=== PATIENT | male | born 1985 | race African-American/Black ===

== ENCOUNTER 2016-05-08 07:21 | Emergency (ER) | payer SELFPAY ==
[2016-05-08] MEDS ORDERED: Ketorolac Tromethamine 30 MG/ML VIAL ONE (08:00)
[2016-05-08] MEDS ORDERED: Ondansetron HCl/PF 4 MG/2 ML Vial ONE (08:00)
[2016-05-08] MEDS ORDERED: Sodium Chloride 0.9% 1,000 ML ONE (08:00)
[2016-05-08 08:03] LABS: #Basophils 0.1 thou/uL (0.0-0.2); #Eosinphils 0.2 thou/uL (0.0-0.7); #Lymphocytes 1.8 thou/uL (1.20-3.40); #Monocytes 0.4 thou/uL (0.11-0.59); #Neutrophils 2.3 thou/uL (1.40-6.50); %Basophils 2.1 % (0.0-1.0); %Eosinophils 3.4 % (0.0-10.0); %Lymphocytes 37.5 % (21.0-51.0); %Monocytes 8.6 % (0.0-10.0); Bilirubin Negative (Negative); Blood, Urine Negative (Negative); Glucose, Urine (Dipstick) 500 mg/dL (Negative); Hematocrit 44.3 % (42.0-52.0); Ketone, Urine 15 mg/dL (Negative); Mean Platelet Volume 7.7 fL (7.4-10.4); Nitrite Negative (Negative); Protein, Urine (Dipstick) Negative (Neg-Trace); Red Blood Cell (RBC) Count 5.06 mill/uL (4.70-6.10); White Blood Cell (WBC) Count 4.7 thou/uL (4.8-10.8)
[2016-05-08 08:16] LABS: ALT (SGPT) 20 U/L (0-55); AST (SGOT) 14 U/L (5-34); Alkaline Phosphatase 84 U/L (40-150); Anion Gap 13 mmol/L (10-20); BUN (Urea Nitrogen) 12 mg/dL (8.9-20.6); Bilirubin, Total 0.6 mg/dL (0.2-1.2); Calc. Creatinine Clearance 0 mL/min (70-130); Calcium 9.4 mg/dL (7.8-10.44); Carbon Dioxide 28 mmol/L (22-29); Chloride 102 mmol/L (98-107); Estimated GFR-MDRD Greater than 90; Globulin 3.1 g/dL (2.4-3.5); Lipase 45 U/L (8-78); Protein, Total 7.2 g/dL (6.0-8.3)
--- NOTE | 2016-05-08 08:24 | RAD ---
ACUTE ABDOMINAL SERIES: Indication: Abdominal pain, possible constipation. FINDINGS: The lungs are clear. No pneumoperitoneum is evident. There is a moderate amount of stool in the co laurie. Bowel gas pattern is not obstructed. No suspicious calcification is evident. No acute osseou s abnormality is evident. IMPRESSION: Moderate amount of retained stool. POS: [facility]
[2016-05-08] MEDS ORDERED: Insulin Regular 300 UNITS/3 ML VIAL ONE (09:13)
--- NOTE | 2016-05-08 10:12 | ERRECORD ---
[facility] EMERGENCY RECORD HPI ABDOMINAL PAIN (SatMay 09, 2016 00:54 AGRE) CHIEF COMPLAINT: Patient presents for evaluation of abdominal pain. HISTORIAN: History provided by patient, History provided by patient's spouse, UNABLE TO HAVE A BOWEL MOVEMENT FOR 2 DAYS. THIS MORNING WHILE TRYING TO HAVE A BOWEL MOVEMENT DEVELOPED LOW ABDOMINAL PAIN AND NOTED HIS BLOOD SUGAR WAS ELEVATED. NO FEVER OR CHILLS. NO OTHER SYMPTOMS. THINKS THE PAIN IS FROM CONSTIPATION. LOCATION MALE: Symptoms are localized, most severe in the left lower quadrant. QUALITY: Pain is dull in nature, described as aching, described as cramping. SEVERITY: Maximum severity of symptoms moderate, Currently symptoms are moderate. TIME COURSE: Gradual onset of symptoms. ASSOCIATED WITH: No associated fever, No associated testicular pain, No associated urinary tract infection signs or symptoms, No associated vomiting. RELIEVED BY: Patient's condition relieved by nothing. EXACERBATED BY: Patient's condition exacerbated by nothing. ROS CONSTITUTIONAL: Historian denies chills, denies fever, denies lethargy, denies malaise. (SatMay 09, 2016 00:56 AGRE) EYES: Historian denies eye pain, denies eye redness. (SatMay 09, 2016 00:56 AGRE) ENT: Historian denies rhinorrhea, denies sinus pain, denies sore throat. (SatMay 09, 2016 00:56 AGRE) CARDIOVASCULAR: Historian denies chest pain, denies dyspnea on exertion. (SatMay 09, 2016 00:56 AGRE) RESPIRATORY: Historian denies cough, denies shortness of breath. (SatMay 09, 2016 00:56 AGRE) GI: Historian reports abdominal pain, denies nausea, denies vomiting. (SatMay 09, 2016 00:56 AGRE) MUSCULOSKELETAL: Historian denies back pain, denies neck pain. (SatMay 09, 2016 00:56 AGRE) SKIN: Negative skin review of systems, Historian denies skin changes, denies skin lesions. (SatMay 09, 2016 00:56 AGRE) NEUROLOGIC: Historian denies headache, denies mental status changes. (SatMay 09, 2016 00:56 AGRE) HEMO/LYMPHATIC: Normal hematologic/lymphatic system review. (SatMay 09, 2016 00:57 AGRE) PSYCHIATRIC: Negative psychiatric review of systems, Historian denies anxiety. (SatMay 09, 2016 00:56 AGRE) PAST MEDICAL HISTORY (07:34 MSPE) MEDICAL HISTORY: Flu vaccine not up to date, Tetanus immunization up to date, Pneumococcal vaccine not up to date, Past medical history includes history of diabetes, Type II. MALE SURGICAL HISTORY: Patient has no surgical history. PSYCHIATRIC HISTORY: No previous psychiatric history. &a-1R&a+25V*p+0X*[id number]*c202B*c15G*c2P*p-0X&a-25V&a+1R Name: Micheal Peterson III : 1985 M31 MedRec: [id number] AcctNum: [id number] Prepared: SatMay 09, 2016 01:08 by Interface Page 1 of 4 pMD [facility] EMERGENCY RECORD SOCIAL HISTORY: Patient drinks socially, Patient denies drug use, Patient currently uses tobacco, chews tobacco. KNOWN ALLERGIES No Known Drug Allergies CURRENT MEDICATIONS (07:30 MSPE) metFORMIN: TABLET : Strength - 500 mg : ORAL Patient Dose: 1000 mg Oral 2 times a day. VITAL SIGNS VITAL SIGNS: BP: 127/83, Pulse: 76, Resp: 16, Temp: 98.2 (Oral), Pain: 5, O2 sat: 97 on Room Air, Time: 05/08/2016 07:30. (07:30 MSPE) BP: 122/82, Pulse: 65, Resp: 15, Pain: 2-3, O2 sat: 98 on Room Air, Time: 05/08/2016 08:36. (08:36 MSPE) BP: 128/76, Pulse: 69, Resp: 16, Temp: 96.8 (Oral), Pain: 0, O2 sat: 97 on Room Air, Time: 05/08/2016 09:56. (09:56 MSPE) PHYSICAL EXAM (SatMay 09, 2016 00:57 AGRE) CONSTITUTIONAL: Vital signs reviewed, Patient afebrile, Respiratory rate normal, Patient appears non toxic, Patient appears pain free, Patient alert and oriented to person, place and time, NURSES NOTES REVIEWED. HEAD: Head exam included findings of head atraumatic, normocephalic. EYES: Eye exam included findings of eyelids normal to inspection, Extraocular muscles intact, Conjunctiva normal, Sclera normal. ENT: Ear exam normal, Nose exam normal, Mouth exam normal. NECK: Neck exam normal, Neck exam included findings of normal range of motion, no meningeal signs, no cervical adenopathy. RESPIRATORY CHEST: Respiratory and chest exam normal, Respiratory exam included findings of no respiratory distress, Breath sounds clear, No wheezing, No rales, No rhonchi, Breath sounds not diminished. CARDIOVASCULAR: Cardiovascular exam included findings of heart rate regular rate and rhythm, Heart sounds normal, normal S1, normal S2, no murmurs, no rub, no gallop. ABDOMEN MALE: Abdominal exam normal, Abdominal exam included findings of abdomen nontender, Bowel sounds normal, Liver normal, Spleen normal, no distension, no mass, no pulsatile masses, no peritoneal signs, no rigidity, no guarding, no rebound, no inguinal hernia, no femoral hernia, no umbilical hernia. BACK: Back exam normal, Back exam included findings of normal inspection, range of motion normal, no costovertebral angle tenderness. UPPER EXTREMITY: Upper extremity exam included findings of inspection normal, Range of motion normal. LOWER EXTREMITY: Lower extremity exam included findings of inspection normal, Range of motion normal. &a-1R&a+25V*p+0X*[id number]*c202B*c15G*c2P*p-0X&a-25V&a+1R Name: Micheal Peterson III : 1985 M31 MedRec: [id number] AcctNum: [id number] Prepared: SatMay 09, 2016 01:08 by Interface Page 2 of 4 D [facility] EMERGENCY RECORD NEURO: Neuro exam normal, Neuro exam findings include patient oriented to person, place and time, Speech normal, Gait normal, Memory normal, Cranial nerves intact, no focal motor deficits. SKIN: Skin exam normal, Skin exam included findings of skin warm, dry, and normal in color. LYMPHATIC: Lymphatic exam normal, Lymphatic exam included findings of cervical nodes normal. PSYCHIATRIC: Psychiatric exam normal, Normal affect. RADIOLOGYINTERPRETATION (SatMay 09, 2016 01:00 [facility]) PIER HAND: Preliminary review of x-rays by, Radiologist, The lungs are clear. No pneumoperitoneum is evident. There is a moderate amount of stool in the co laurie. Bowel gas pattern is not obstructed. No suspicious calcification is evident. No acute osseou s abnormality is evident. IMPRESSION: Moderate amount of retained stool. MEDICATION ADMINISTRATION SUMMARY Drug Name: lactulose, Dose Ordered: 40 g, Route: Oral, Status: Given, Time: 09:22 05/08/2016, Drug Name: insulin regular pork, Dose Ordered: 5 units, Route: Subcutaneous, Status: Given, Time: 09:16 05/08/2016, Drug Name: ketorolac injection, Dose Ordered: 30 mg, Route: IV Push, Status: Given, Time: 08:07 05/08/2016, Drug Name: ondansetron HCl intravenous, Dose Ordered: 4 mg, Route: IV Push, Status: Given, Time: 08:04 05/08/2016, Drug Name: sodium chloride 0.9 % intravenous, Dose Ordered: 1 L, Route: IV Fluid Infusion, Status: Given, Time: 08:01 05/08/2016, Detailed record available in Medication Service section. DOCTOR NOTES (SatMay 09, 2016 01:00 AGRE) RE-EVALUATION: Routine re-evaluation, after administration of analgesics, The patient's condition has improved. TEXT: VS REMAINED STABLE AND HE REMAINED COMFORTABLE WITHOUT PAIN AFTER TORADOL IN THE ED. RECHECK OF ABDOMEN REMAINED NON-TENDER. DISCUSSED WITH HIM AND FAMILY FINDINGS ON EXAM, RECOMMENDATIONS FOR MANAGEMENT OF HIS SYMPTOMS, NEED FOR CLOSE FOLLOW UP. HIS BLOOD SUGAR MEDS WAS RECENTLY CHNAGED AND SHE WILL SPEAK WITH HIS PCP CONCERNING PERSISTENT ELEVATION OF HIS BLOOD SUGAR SINCE THE MEDS WAS CHANGED. THYE HAVE AN APPOINTMENT SCHEDULED FOR THIS WEEK. THEY EXPRESSED UNDERSTANDING AND AGREEMENT WITH THE PLAN OF CARE. PATIENT STATUS: Patient has improved since arrival to emergency department. PATIENT PLAN: The patient will be discharged. DATA REVIEWED: Lab data reviewed, Xray data reviewed, Discussed with family. &a-1R&a+25V*p+0X*[id number]*c202B*c15G*c2P*p-0X&a-25V&a+1R Name: Micheal Peterson III : 1985 M31 MedRec: [id number] AcctNum: [id number] Prepared: SatMay 09, 2016 01:08 by Interface Page 3 of 4 pMD [facility] EMERGENCY RECORD PROBLEM LIST No recorded problems DIAGNOSIS (08:32 AGRE) FINAL: PRIMARY: Constipation, ADDITIONAL: TYPE 2 DM W/HYPERGLYCEMIA. PRESCRIPTION No recorded prescriptions DISPOSITION PATIENT: Disposition Type: Discharge, Disposition: *Discharge Home, Condition: Improved. (08:32 SAI) Patient left the department. (10:05 PHILLIP) Huggins: AGRE=MD Primo, Jose Eduardo MSPE=ANNIE Conde, Callie &a-1R&a+25V*p+0X*[id number]*c202B*c15G*c2P*p-0X&a-25V&a+1R Name: Micheal Peterson III : 1985 M31 MedRec: [id number] AcctNum: [id number] Prepared: SatMay 09, 2016 01:08 by Interface Page 4 of 4 pMD MTDD
--- NOTE | 2016-05-08 10:17 | PICIS ---
[facility] EMERGENCY RECORD TRIAGE (SatMay 08, 2016 07:30 MSPE) TRIAGE NOTES: abd pain since 05. Sts started while trying to have BM. PATIENT: NAME: Micheal Peterson III, AGE: 31, GENDER: male, : Sat1985, TIME OF GREET: SatMay 08, 2016 07:22, PREFERRED LANGUAGE: Trinidadian, ETHNICITY: Not or , ECODE BILLING MAP: [facility] ER, SSN: [id number], Zip Code: [address], KG WEIGHT: 70.76, PHONE: , , , PERSON ID: [id number], PCP: Austyn Morales /[place]. COMPLAINT: ABD PAIN/POSS CONSTIPATION. ADMISSION: URGENCY: 3 Urgent, ADMISSION SOURCE: Home, TRANSPORT: CAR, BED: ER -02. PROVIDERS: TRIAGE NURSE: Callie Conde RN. VITAL SIGNS: BP 127/83, Pulse 76, Resp 16, Temp 98.2, (Oral), Pain 5, O2 Sat 97, on Room Air, Time 05/08/2016 07:30. KNOWN ALLERGIES No Known Drug Allergies CURRENT MEDICATIONS (07:30 MSPE) metFORMIN: TABLET : Strength - 500 mg : ORAL Patient Dose: 1000 mg Oral 2 times a day. VITAL SIGNS VITAL SIGNS: BP: 127/83, Pulse: 76, Resp: 16, Temp: 98.2 (Oral), Pain: 5, O2 sat: 97 on Room Air, Time: 05/08/2016 07:30. (07:30 MSPE) BP: 122/82, Pulse: 65, Resp: 15, Pain: 2-3, O2 sat: 98 on Room Air, Time: 05/08/2016 08:36. (08:36 MSPE) BP: 128/76, Pulse: 69, Resp: 16, Temp: 96.8 (Oral), Pain: 0, O2 sat: 97 on Room Air, Time: 05/08/2016 09:56. (09:56 MSPE) NURSING ASSESSMENT: ABDOMEN (07:34 MSPE) CONSTITUTIONAL: Patient arrives ambulatory, Gait steady, History obtained from patient, Patient appears comfortable, Patient cooperative, Patient alert, Oriented to person, place and time, Skin warm, Skin dry. PAIN: throbbing pain, to the left lower quadrant, to the right lower quadrant, Onset of pain 0530. ABDOMEN: Associated with nausea, Associated with constipation, Date of last bowel movement: 05/06/2016, passed gas this a.m. GENITOURINARY MALE: no associated urinary complaints. NURSING PROCEDURE: BEDSIDE TESTING GLUCOSE: Glucose testing indicated for diabetic patient, Capillary blood sample, Result (mg/dl) 326. (07:41 MSPE) Glucose testing indicated for diabetic patient, Capillary blood sample, &a-1R&a+25V*p+0X*o4231C*c202B*c15G*c2P*p-0X&a-25V&a+1R Name: Micheal Peterson III : 1985 M31 MedRec: [id number] AcctNum: [id number] Prepared: SatMay 09, 2016 01:14 by Interface Page 1 of 9 pMD [facility] EMERGENCY RECORD Result (mg/dl) 311. (09:04 MSPE) Glucose testing indicated for diabetic patient, Capillary blood sample, Result (mg/dl) 308. (10:00 MSPE) FOLLOW-UP: After procedure, results given to Dr. Tillman. (07:41 MSPE) After procedure, results given to Dr. Tillman. (09:04 MSPE) After procedure, results given to Dr. Tillman. (10:00 MSPE) NURSING PROCEDURE: DISCHARGE NOTE (10:05 MSPE) DISCHARGE: Patient discharged to home, ambulating without assistance, accompanied by other family member, Summary of Care printed/ provided, Discharge instructions given to patient, Simple or moderate discharge teaching performed, Above person(s) verbalized understanding of discharge instructions and follow-up care, Patient treated and evaluated by physician. BELONGINGS: Belongings remain with patient. NURSING PROCEDURE: IV IV SITE 1: IV therapy indicated for hydration, IV therapy indicated for medication administration, IV established, to the right forearm, using a 20 gauge catheter, in one attempt, IV site prepped with chloraprep, Saline lock established, Flushed with normal saline (mls): 10, Labs drawn at time of placement, labeled in the presence of the patient and sent to lab. (07:50 MSPE) FOLLOW-UP SITE 1: After procedure, 2x2 dressing applied, IV discontinued, due to patient being discharged, catheter intact. (10:02 MSPE) NURSING PROCEDURE: NURSE NOTES NURSES NOTES: Patient is awaiting results, Patient is awaiting disposition, Notes: Resting with eyes closed; awakens easily; sts pain improved; now 2-3. (08:36 MSPE) Patient is improving, Patient in no apparent distress, Patient states decreased pain, Patient resting quietly, Notes: Repeat accucheck done with results to Dr Tillman; awaiting DC paperwork from . (09:04 MSPE) Notes: New med order noted. (09:11 MSPE) NURSING PROCEDURE: TRANSPORT TO TESTS TRANSPORT TO TESTS: Patient transported to x-ray, via cart, Accompanied by transportation escort. (07:51 MSPE) Patient transported to x-ray, via cart, Accompanied by x-ray airframe technician, Patient arrived in location at 07:50A, Patient departed location at 08:00A. (07:48 CCRI) FOLLOW-UP: After procedure, patient returned to emergency department. (07:59 MSPE) NURSING PROCEDURE: URINE COLLECTION (07:45 MSPE) URINE COLLECTION MALE: Urine collection indicated for abd pain, Urine collected by void. &a-1R&a+25V*p+0X*a9439M*c202B*c15G*c2P*p-0X&a-25V&a+1R Name: Micheal Peterson III : 1985 M31 MedRec: [id number] AcctNum: [id number] Prepared: SatMay 09, 2016 01:14 by Interface Page [address] [facility] EMERGENCY RECORD ORDER DETAILS Order Name: BLOOD GLUCOSE MONITOR, Status: Done, Time: 09:59 05/08/2016, User: PHILLIP, - Ordered for: MD Tillman Andrea, - Entered by: ANNIE Conde, Callie Jones May 08, 2016 09:59, - Quantity: 1, Order Name: BLOOD GLUCOSE MONITOR, Status: Done, Time: 09:04 05/08/2016, User: PHILLIP, - Ordered for: MD Tillman Andrea, - Entered by: MD Tillman Andrea - Tue May 08, 2016 08:39, - Quantity: 1, Order Name: CBC with Differential, Status: Active, Time: 07:41 05/08/2016, User: SAI, - Ordered for: MD Tillman Andrea, - Entered by: MD Tillman Andrea - Tue May 08, 2016 07:41, - Quantity: 1, Order Name: Comprehensive Metabolic Panel, Status: Active, Time: 07:41 05/08/2016, User: SAI, - Ordered for: MD Tillman Andrea, - Entered by: MD Tillman Andrea - Tue May 08, 2016 07:41, - Quantity: 1, Order Name: Lipase, Status: Active, Time: 07:41 05/08/2016, User: SAI, - Ordered for: MD Tillman Andrea, - Entered by: MD Tillman Andrea - Tue May 08, 2016 07:41, - Quantity: 1, Order Name: SALINE LOCK, Status: Done, Time: 07:57 05/08/2016, User: PHILLIP, - Ordered for: MD Tillman Andrea, - Entered by: MD Tillman Andrea - Tue May 08, 2016 07:41, - Quantity: 1, Order Name: Urinalysis w/ Rflx Microscopic, Status: Active, Time: 07:41 05/08/2016, User: SAI, - Ordered for: MD Tillman Andrea, - Entered by: MD Tillman Andrea - Tue May 08, 2016 07:41, - Quantity: 1, Order Name: XR Abdomen 2 View/1 View Cxr, Status: Active, Time: 07:41 05/08/2016, User: SAI, - Ordered for: MD Tillman Andrea, - Entered by: MD Tillman Andrea - Tue May 08, 2016 07:41, - Quantity: 1. MEDICATION ADMINISTRATION SUMMARY Drug Name: lactulose, Dose Ordered: 40 g, Route: Oral, Status: Given, Time: 09:22 05/08/2016, Drug Name: insulin regular pork, Dose Ordered: 5 units, Route: Subcutaneous, Status: Given, Time: 09:16 05/08/2016, &a-1R&a+25V*p+0X*n5894Q*c202B*c15G*c2P*p-0X&a-25V&a+1R Name: Micheal Peterson III : 1985 M31 MedRec: [id number] AcctNum: [id number] Prepared: SatMay 09, 2016 01:14 by Interface Page 3 of 9 pMD [facility] EMERGENCY RECORD Drug Name: ketorolac injection, Dose Ordered: 30 mg, Route: IV Push, Status: Given, Time: 08:07 05/08/2016, Drug Name: ondansetron HCl intravenous, Dose Ordered: 4 mg, Route: IV Push, Status: Given, Time: 08:04 05/08/2016, Drug Name: sodium chloride 0.9 % intravenous, Dose Ordered: 1 L, Route: IV Fluid Infusion, Status: Given, Time: 08:01 05/08/2016, Detailed record available in Medication Service section. MEDICATION SERVICE insulin regular pork: Order: insulin regular pork (insulin,pork) - Dose: 5 units : Subcutaneous Ordered by: Jose Eduardo Tillman MD Entered by: Jose Eduardo Tillman MD SatMay 08, 2016 09:10 , Acknowledged by: Callie Conde RN SatMay 08, 2016 09:12, Co-signed by: Chantal Paz RN SatMay 08, 2016 09:14 Documented as given by: Callie Conde RN SatMay 08, 2016 09:16 Patient, Medication, Dose, Route and Time verified prior to administration. Amount given: 5 units, Medication administered to left upper arm, Correct patient, time, route, dose and medication confirmed prior to administration, Patient advised of actions and side-effects prior to administration, Allergies confirmed and medications reviewed prior to administration, Advised not to ambulate without assistance, Patient in position of comfort, Side rails up, Cart in lowest position. ketorolac injection: Order: ketorolac injection (ketorolac tromethamine) - Dose: 30 mg : IV Push Ordered by: Jose Eduardo Tillman MD Entered by: Jose Eduardo Tillman MD SatMay 08, 2016 07:42 Documented as given by: Callie Conde RN SatMay 08, 2016 08:07 Patient, Medication, Dose, Route and Time verified prior to administration. Amount given: 30mg, IV SITE #1 IVP, subsequent different medication, Slowly, Awake and alert- acceptable, Connections checked prior to administration, Line traced prior to administration, Catheter placement confirmed via flush prior to administration, IV site without signs or symptoms of infiltration during medication administration, No swelling during administration, No drainage during administration, IV flushed after administration, Correct patient, time, route, dose and medication confirmed prior to administration, Patient advised of actions and side-effects prior to administration, Allergies confirmed and medications reviewed prior to administration, Patient in position of comfort, Side rails up, Cart in lowest position, Family at bedside. lactulose: Order: lactulose - Dose: 40 g : Oral Ordered by: Jose Eduardo Tillman MD Entered by: Jose Eduardo Tillman MD SatMay 08, 2016 09:13 , Acknowledged by: Callie Conde RN SatMay 08, 2016 09:19 Documented as given by: Callie Conde RN SatMay 08, 2016 09:22 Patient, Medication, Dose, Route and Time verified prior to administration. &a-1R&a+25V*p+0X*q0277N*c202B*c15G*c2P*p-0X&a-25V&a+1R Name: Micheal Peterson III : 1985 M31 MedRec: [id number] AcctNum: [id number] Prepared: SatMay 09, 2016 01:14 by Interface Page [address] [facility] EMERGENCY RECORD Amount given: 40grams, Site: Medication administered P.O., Patient appears Awake and alert- acceptable, Correct patient, time, route, dose and medication confirmed prior to administration, Patient advised of actions and side-effects prior to administration, Allergies confirmed and medications reviewed prior to administration, Patient in position of comfort, Side rails up, Cart in lowest position. ondansetron HCl intravenous: Order: ondansetron HCl intravenous (ondansetron HCl) - Dose: 4 mg : IV Push Ordered by: Jose Eduardo Tillman MD Entered by: Jose Eduardo Tillman MD SatMay 08, 2016 07:42 Documented as given by: Callie Conde RN SatMay 08, 2016 08:04 Patient, Medication, Dose, Route and Time verified prior to administration. Amount given: 4mg, IV SITE #1 IVP, initial medication, Slowly, Awake and alert- acceptable, Connections checked prior to administration, Line traced prior to administration, Catheter placement confirmed via flush prior to administration, IV site without signs or symptoms of infiltration during medication administration, No swelling during administration, No drainage during administration, IV flushed after administration, Correct patient, time, route, dose and medication confirmed prior to administration, Patient advised of actions and side-effects prior to administration, Allergies confirmed and medications reviewed prior to administration, Patient in position of comfort, Side rails up, Cart in lowest position, Family at bedside. sodium chloride 0.9 % intravenous: Order: sodium chloride 0.9 % intravenous (0.9 % sodium chloride) - Dose: 1 L : IV Fluid Infusion Ordered by: Jose Eduardo Tillman MD Entered by: Jose Eduardo Tillman MD SatMay 08, 2016 07:42 Documented as given by: Callie Conde RN SatMay 08, 2016 08:01 Patient, Medication, Dose, Route and Time verified prior to administration. Amount given: 1000ml, IV SITE #1 IV fluids established for hydration, IV SITE #1 1st bag hung, amount 1 Liter hung, IV SITE #1 bolus of 1000 ml established, IV SITE #1 Rate of bolus, wide open, via primary tubing, via gravity tubing, Awake and alert- acceptable, Connections checked prior to administration, Line traced prior to administration, Catheter placement confirmed via flush prior to administration, IV site without signs or symptoms of infiltration during medication administration, No swelling during administration, No drainage during administration, IV flushed after administration, Correct patient, time, route, dose and medication confirmed prior to administration, Patient advised of actions and side-effects prior to administration, Allergies confirmed and medications reviewed prior to administration, Patient in position of comfort, Side rails up, Cart in lowest position, Family at bedside. sodium chloride 0.9 % intravenous: Decreased pain, _IV SITE #1:_, IV fluid infusion discontinued, on SatMay 08, 2016 08:36, 35 minutes, ., Total amount infused: 1000ml, IV Line &a-1R&a+25V*p+0X*b5477Q*c202B*c15G*c2P*p-0X&a-25V&a+1R Name: Micheal Peterson III : 1985 M31 MedRec: [id number] AcctNum: [id number] Prepared: SatMay 09, 2016 01:14 by Interface Page 5 of 9 pMD DERICK Neal [facility] EMERGENCY RECORD flushed after administration, BP: 122, / 82, Pulse: 65, Resp: 15, Pain: 2-3, O2 sat: 98, on Room Air. (08:36 MSPE) HPI ABDOMINAL PAIN (SatMay 09, 2016 00:54 AGRE) CHIEF COMPLAINT: Patient presents for evaluation of abdominal pain. HISTORIAN: History provided by patient, History provided by patient's spouse, UNABLE TO HAVE A BOWEL MOVEMENT FOR 2 DAYS. THIS MORNING WHILE TRYING TO HAVE A BOWEL MOVEMENT DEVELOPED LOW ABDOMINAL PAIN AND NOTED HIS BLOOD SUGAR WAS ELEVATED. NO FEVER OR CHILLS. NO OTHER SYMPTOMS. THINKS THE PAIN IS FROM CONSTIPATION. LOCATION MALE: Symptoms are localized, most severe in the left lower quadrant. QUALITY: Pain is dull in nature, described as aching, described as cramping. SEVERITY: Maximum severity of symptoms moderate, Currently symptoms are moderate. TIME COURSE: Gradual onset of symptoms. ASSOCIATED WITH: No associated fever, No associated testicular pain, No associated urinary tract infection signs or symptoms, No associated vomiting. RELIEVED BY: Patient's condition relieved by nothing. EXACERBATED BY: Patient's condition exacerbated by nothing. ROS CONSTITUTIONAL: Historian denies chills, denies fever, denies lethargy, denies malaise. (SatMay 09, 2016 00:56 AGRE) EYES: Historian denies eye pain, denies eye redness. (SatMay 09, 2016 00:56 AGRE) ENT: Historian denies rhinorrhea, denies sinus pain, denies sore throat. (SatMay 09, 2016 00:56 AGRE) CARDIOVASCULAR: Historian denies chest pain, denies dyspnea on exertion. (SatMay 09, 2016 00:56 AGRE) RESPIRATORY: Historian denies cough, denies shortness of breath. (SatMay 09, 2016 00:56 AGRE) GI: Historian reports abdominal pain, denies nausea, denies vomiting. (SatMay 09, 2016 00:56 AGRE) MUSCULOSKELETAL: Historian denies back pain, denies neck pain. (SatMay 09, 2016 00:56 AGRE) SKIN: Negative skin review of systems, Historian denies skin changes, denies skin lesions. (SatMay 09, 2016 00:56 AGRE) NEUROLOGIC: Historian denies headache, denies mental status changes. (SatMay 09, 2016 00:56 AGRE) HEMO/LYMPHATIC: Normal hematologic/lymphatic system review. (SatMay 09, 2016 00:57 AGRE) PSYCHIATRIC: Negative psychiatric review of systems, Historian denies anxiety. (SatMay 09, 2016 00:56 AGRE) PAST MEDICAL HISTORY (07:34 MSPE) MEDICAL HISTORY: Flu vaccine not up to date, Tetanus immunization up to date, Pneumococcal vaccine not up to date, Past medical history includes history of &a-1R&a+25V*p+0X*a4510N*c202B*c15G*c2P*p-0X&a-25V&a+1R Name: Micheal Peterson III : 1985 M31 MedRec: [id number] AcctNum: [id number] Prepared: SatMay 09, 2016 01:14 by Interface Page 6 of 9 pMD [facility] EMERGENCY RECORD diabetes, Type II. MALE SURGICAL HISTORY: Patient has no surgical history. PSYCHIATRIC HISTORY: No previous psychiatric history. SOCIAL HISTORY: Patient drinks socially, Patient denies drug use, Patient currently uses tobacco, chews tobacco. PHYSICAL EXAM (SatMay 09, 2016 00:57 AGRE) CONSTITUTIONAL: Vital signs reviewed, Patient afebrile, Respiratory rate normal, Patient appears non toxic, Patient appears pain free, Patient alert and oriented to person, place and time, NURSES NOTES REVIEWED. HEAD: Head exam included findings of head atraumatic, normocephalic. EYES: Eye exam included findings of eyelids normal to inspection, Extraocular muscles intact, Conjunctiva normal, Sclera normal. ENT: Ear exam normal, Nose exam normal, Mouth exam normal. NECK: Neck exam normal, Neck exam included findings of normal range of motion, no meningeal signs, no cervical adenopathy. RESPIRATORY CHEST: Respiratory and chest exam normal, Respiratory exam included findings of no respiratory distress, Breath sounds clear, No wheezing, No rales, No rhonchi, Breath sounds not diminished. CARDIOVASCULAR: Cardiovascular exam included findings of heart rate regular rate and rhythm, Heart sounds normal, normal S1, normal S2, no murmurs, no rub, no gallop. ABDOMEN MALE: Abdominal exam normal, Abdominal exam included findings of abdomen nontender, Bowel sounds normal, Liver normal, Spleen normal, no distension, no mass, no pulsatile masses, no peritoneal signs, no rigidity, no guarding, no rebound, no inguinal hernia, no femoral hernia, no umbilical hernia. BACK: Back exam normal, Back exam included findings of normal inspection, range of motion normal, no costovertebral angle tenderness. UPPER EXTREMITY: Upper extremity exam included findings of inspection normal, Range of motion normal. LOWER EXTREMITY: Lower extremity exam included findings of inspection normal, Range of motion normal. NEURO: Neuro exam normal, Neuro exam findings include patient oriented to person, place and time, Speech normal, Gait normal, Memory normal, Cranial nerves intact, no focal motor deficits. SKIN: Skin exam normal, Skin exam included findings of skin warm, dry, and normal in color. LYMPHATIC: Lymphatic exam normal, Lymphatic exam included findings of cervical nodes normal. PSYCHIATRIC: Psychiatric exam normal, Normal affect. LAB INTERPRETATION (SatMay 09, 2016 01:00 AGRE) INTERPRETATION: CBC normal, Chemistry abnormal, Glucose elevated, Bicarbonate normal, Liver functions normal, Urinalysis abnormal, positive for &a-1R&a+25V*p+0X*o0280L*c202B*c15G*c2P*p-0X&a-25V&a+1R Name: Micheal Peterson III : 1985 M31 MedRec: [id number] AcctNum: [id number] Prepared: SatMay 09, 2016 01:14 by Interface Page 7 of 9 D [facility] EMERGENCY RECORD ketones, positive for glucose. EVENTS TRANSFER: Triage to Emergency Emergency Room -02. (SatMay 08, 2016 07:30 MSPE) Removed from Emergency Emergency Room -02. (10:05 MSPE) RADIOLOGYINTERPRETATION (SatMay 09, 2016 01:00 AGRE) BELT GLASS SANDER: Preliminary review of x-rays by, Radiologist, The lungs are clear. No pneumoperitoneum is evident. There is a moderate amount of stool in the co laurie. Bowel gas pattern is not obstructed. No suspicious calcification is evident. No acute osseou s abnormality is evident. IMPRESSION: Moderate amount of retained stool. O2SAT INTERPRETATION (SatMay 09, 2016 00:59 AGRE) O2SAT: Continuous pulse oximetry, Oxygen saturation 97%, on room air, Oxygen saturation interpretation: Normal, No intervention required. DOCTOR NOTES (SatMay 09, 2016 01:00 AGRE) RE-EVALUATION: Routine re-evaluation, after administration of analgesics, The patient's condition has improved. TEXT: VS REMAINED STABLE AND HE REMAINED COMFORTABLE WITHOUT PAIN AFTER TORADOL IN THE ED. RECHECK OF ABDOMEN REMAINED NON-TENDER. DISCUSSED WITH HIM AND FAMILY FINDINGS ON EXAM, RECOMMENDATIONS FOR MANAGEMENT OF HIS SYMPTOMS, NEED FOR CLOSE FOLLOW UP. HIS BLOOD SUGAR MEDS WAS RECENTLY CHNAGED AND SHE WILL SPEAK WITH HIS PCP CONCERNING PERSISTENT ELEVATION OF HIS BLOOD SUGAR SINCE THE MEDS WAS CHANGED. THYE HAVE AN APPOINTMENT SCHEDULED FOR THIS WEEK. THEY EXPRESSED UNDERSTANDING AND AGREEMENT WITH THE PLAN OF CARE. PATIENT STATUS: Patient has improved since arrival to emergency department. PATIENT PLAN: The patient will be discharged. DATA REVIEWED: Lab data reviewed, Xray data reviewed, Discussed with family. PROBLEM LIST No recorded problems DIAGNOSIS (08:32 AGRE) FINAL: PRIMARY: Constipation, ADDITIONAL: TYPE 2 DM W/HYPERGLYCEMIA. DISPOSITION PATIENT: Disposition Type: Discharge, Disposition: *Discharge Home, Condition: Improved. (08:32 AGRE) &a-1R&a+25V*p+0X*n1818H*c202B*c15G*c2P*p-0X&a-25V&a+1R Name: Micheal Peterson III : 1985 M31 MedRec: [id number] AcctNum: [id number] Prepared: SatMay 09, 2016 01:14 by Interface Page 8 of 9 D [facility] EMERGENCY RECORD Patient left the department. (10:05 MSPE) INSTRUCTION (09:12 AGRE) DISCHARGE: CONSTIPATION (ADULT), DIABETIC HYPERGLYCEMIA. FOLLOWUP: [facility], /[facility], [address] [place] [id number], . SPECIAL: FOLLOW UP WITH YOUR PHYSICIAN ABOUT YOUR BLOOD SUGAR MANAGEMENT TODAY. PRESCRIPTION No recorded prescriptions IMAGING (10:23 MSPE) *DISCHARGE INSTRUCTIONS RECEIPT: Image captured from scanner. *SUPPLY CHARGE SHEET: Image captured from scanner. ADMIN (SatMay 09, 2016 01:04 AGRE) DIGITAL SIGNATURE: MD Tillman Andrea. Huggins: AGRE=MD Tillman Andrea CCRI=RISHABH Recinos Clemente MSPE=ANNIE Conde Marilyn &a-1R&a+25V*p+0X*h1645P*c202B*c15G*c2P*p-0X&a-25V&a+1R Name: Micheal Peterson III : 1985 M31 MedRec: [id number] AcctNum: [id number] Prepared: Maggie May 09, 2016 01:14 by Interface Page 9 of 9 pMD MTDD
== END 2016-05-08 10:04 | disposition home or self-care (01) ==
LOC: NAV ERS 07:21
DX: K59.00 Constipation, unspecified (principal); E11.65 Type 2 diabetes mellitus with hyperglycemia; F17.220 Nicotine dependence, chewing tobacco, uncomplicated
CPT/HCPCS: 36416; 74022; 80053; 81003; 83690; 85025; 96361; 96372; 96374; 96375; J1815; J1885; J2405; J7050

== ENCOUNTER 2017-04-10 20:19 | Emergency (ER) | payer BC, SELFPAY ==
[2017-04-10] MEDS ORDERED: Sodium Chloride 0.9% 2,000 ML ONE (20:46)
[2017-04-10] MEDS ORDERED: Insulin Regular 300 UNITS/3 ML VIAL ONE (20:46)
[2017-04-10 21:04] LABS: Mean Corpuscular HGB CONC 33.2 g/dL (32.0-36.0); Mean Corpuscular Hemoglobin 28.7 pg (27.0-31.0); Mean Corpuscular Volume 86.5 fl (80.0-94.0); Mean Platelet Volume 9.6 fL (7.4-10.4); Platelet Count 205 thou/uL (130-400); RBC Distribution Width 10.3 % (11.5-14.5); Red Blood Cell (RBC) Count 4.53 mill/uL (4.70-6.10)
[2017-04-10 21:07] LABS: #Neutrophils 2.9 thou/uL (1.40-6.50); %Basophils 1.9 % (0.0-1.0); %Eosinophils 3.1 % (0.0-10.0); %Lymphocytes 39.3 % (21.0-51.0); %Neutrophils 48.6 % (42.0-75.0)
[2017-04-10 21:08] LABS: #Basophils 0.1 thou/uL (0.0-0.2); #Eosinphils 0.2 thou/uL (0.0-0.7); #Lymphocytes 2.4 thou/uL (1.20-3.40); #Monocytes 0.4 thou/uL (0.11-0.59)
[2017-04-10 21:12] LABS: ALT (SGPT) 57 U/L (8-55); AST (SGOT) 30 U/L (5-34); Albumin 3.8 g/dL (3.5-5.0); Alkaline Phosphatase 89 U/L (40-150); Anion Gap 21 mmol/L (10-20); BUN (Urea Nitrogen) 18 mg/dL (8.9-20.6); Bilirubin, Total 0.2 mg/dL (0.2-1.2); Calc. Creatinine Clearance 0 mL/min (70-130); Calcium 9.2 mg/dL (7.8-10.44); Carbon Dioxide 21 mmol/L (22-29); Chloride 99 mmol/L (98-107); Estimated GFR-MDRD 82; Globulin 3.1 g/dL (2.4-3.5); Lipase 79 U/L (8-78); Potassium 3.8 mmol/L (3.5-5.1); Protein, Total 6.9 g/dL (6.0-8.3); Sodium 137 mmol/L (136-145)
[2017-04-10 21:20] LABS: Glucose 556 mg/dL (70-105)
== END 2017-04-10 21:55 | disposition home or self-care (01) ==
LOC: NAV ERS 20:19
DX: E11.65 Type 2 diabetes mellitus with hyperglycemia (principal); F17.220 Nicotine dependence, chewing tobacco, uncomplicated; Z79.84 Long term (current) use of oral hypoglycemic drugs
CPT/HCPCS: 36416; 80053; 82010; 82947; 83690; 85025; 96361; 96374; J1815; J7050